=== PATIENT | male | born 1980 | race Hispanic/Latino ===

== ENCOUNTER 2019-06-27 04:04 | Emergency (ER) | payer OTHER ==
[2019-06-27] MEDS ORDERED: IBUPROFEN 200 MG TAB ONE (04:56)
[2019-06-27] MEDS ORDERED: IBUPROFEN 400 MG TABLET ONE (04:56)
[2019-06-27] MEDS ORDERED: BENZONATATE 100 MG CAPSULE PO ONE (04:56)
[2019-06-27 05:02] LABS: BASOPHILS % (AUTO) 0.8 % (0.0-5.0); EOSINOPHILS % (AUTO) 1.1 % (0.0-8.0); HEMATOCRIT 46.2 % (42-54); LYMPHOCYTES % (AUTO) 11.8 % (21.0-51.0); MEAN CORPUSCULAR HEMOGLOBIN 29.7 pg (27.0-33.0); MEAN CORPUSCULAR HGB CONC 34.8 g/dL (32.0-36.0); MEAN CORPUSCULAR VOLUME 85.1 fL (79-99); MONOCYTES % (AUTO) 9.1 % (3.0-13.0); NEUTROPHILS % (AUTO) 76.7 % (40.0-77.0); PLATELET COUNT (AUTO) 264 K/uL (130-400); RED BLOOD CELL COUNT(AUTO) 5.43 MIL/uL (4.50-6.20); RED CELL DISTRIBUTION WIDTH 11.6 % (11.0-15.5); WHITE BLOOD COUNT (AUTO) 11.1 K/uL (4.8-10.8)
[2019-06-27 05:16] LABS: POTASSIUM 4.2 mmol/L (3.5-5.1)
[2019-06-27] MEDS ORDERED: SODIUM CHLORIDE 0.9% 1000ML 1,000 ML IV ONE (05:17)
[2019-06-27 05:20] LABS: ALBUMIN 3.5 g/dL (3.5-5.0); BILIRUBIN,TOTAL 0.9 mg/dL (0.2-1.0); TOTAL PROTEIN, SERUM 8.6 g/dL (6.0-8.3)
[2019-06-27] MEDS ORDERED: AZITHROMYCIN 250 MG TABLET PO ONE (05:44)
[2019-06-27] MEDS ORDERED: CEFTRIAXONE SODIUM 1 GM ONE (05:44)
== END 2019-06-27 06:56 | disposition home or self-care (01) ==
LOC: EDH 04:04
DX: J18.9 Pneumonia, unspecified organism (principal); R11.2 Nausea with vomiting, unspecified; E11.9 Type 2 diabetes mellitus without complications; I10 Essential (primary) hypertension
CPT/HCPCS: 36415; 71046; 80053; 83605; 85025; 87804 ×2; 96361; 96374; 99284; J0696; J7030